=== PATIENT | male | born 1975 | race Caucasian/White ===

== ENCOUNTER 2021-07-05 15:01 | Observation (INO) ==
[2021-07-05] MEDS ORDERED: IOPAMIDOL 100 ML BOTTLE IV ONE ×2 (15:02→21:09)
[2021-07-05] MEDS ORDERED: 0.9 % SODIUM CHLORIDE 1,000 ML IV ONE (15:09)
--- NOTE | 2021-07-05 15:27 | Emergency Department Note ---
ED Note Addendum Note Addendum: I evaluated and treated this patient in conjunction with the [facility]. I agree with their documented history, examination and medical decision making as documented separately. I also evaluated the patient in person with the following additional findings: Patient is complaining of shortness of breath and a mild cough. At the time of my initial exam, he is able to speak comfortably in short sentences on room air and his slight tachypnea after prolonged periods of conversation. Given the current local prevalence we will obtain testing for possible Covid pneumonia. EKG performed at 3:15 PM: Sinus rhythm, rate 99. Normal P wave QRS and T wave morphology. No ST segment deviation. Normal CO QRS and QTc duration. No old EKG immediately available for comparison. EKG interpreted by me.
--- NOTE | 2021-07-05 15:35 | Emergency Department Note ---
SOB HPI General Chief Complaint: Shortness of Breath/Dyspnea Stated Complaint: sob Time Seen by Provider: 07/05/21 15:09 Source: patient Mode of arrival: ambulatory Limitations: no limitations History of Present Illness HPI Narrative: Narrative: Patient is a 46-year-old male that comes into the emergency department today with complaint of shortness of breath that started 2 nights ago. Patient indicates that on around 1 AM cup from his sleep with left-sided chest pain that lasted for 1 hour. He ports that he went back to sleep and then has not had any further chest pain since that time. The next day he started to have shortness of breath, and has noticed that the shortness of breath is aggravated with exertion. He has not had any fevers or chills. He denies any cough, palpitations, or edema. He has not had any weakness or headaches. He has not had any nausea, vomiting, or. Patient indicates that he has no significant past medical history and has been healthy. He is no longer having any chest pain, but was concerned with the shortness of breath that he keeps experiencing. Related Data Home Medications Medication Instructions Recorded Confirmed No Known Home Meds 07/05/21 07/05/21 Allergies Allergy/AdvReac Type Severity Reaction Status Date / Time egg Allergy Verified 07/05/21 15:06 Review of Systems ROS ROS Narrative: Narrative: All systems ED: reviewed and negative except as stated. [facility] Narrative Patient History Narrative: Narrative: Medical/Surgical/Family History All Active Problems (Updated 07/05/21 @ 20:25 by AMARILIS Iniguez) Multiple pulmonary emboli (Acute) Social History Smoking Status: Never smoker Exam Narrative Narrative: Narrative: General Limitations: no limitations General appearance: Present alert and in no apparent distress Head Head: Present normal inspection Eye Eye: Present normal appearance, PERRL and EOMI; Absent scleral icterus and conjunctival injection ENT ENT: Present normal oropharynx and mucous membranes moist Neck Neck: Present trachea midline; Absent lymphadenopathy and thyromegaly Chest Chest: Present symmetric chest wall rise; Absent tenderness Respiratory Respiratory: Present normal lung sounds bilaterally; Absent respiratory distress, rales/crackles, wheezes, stridor, accessory muscle use and prolonged expiratory phase Cardiovascular Cardiovascular: Present regular rate, normal rhythm and normal heart sounds; Absent systolic murmur and diastolic murmur Adbominal Abdominal: Present soft; Absent distention and tenderness Extremities Extremities: Present normal inspection, full ROM and normal capillary refill; Absent pedal edema, pretibial edema, calf tenderness and clubbing Back Back: Absent CVA tenderness (R), CVA tenderness (L) and spinous process tenderness Neurological Neurological: Present alert and oriented X3 Psychiatric Psychiatric: Present normal affect and normal mood Skin Skin: Present warm (WNL), dry and normal color Course Vital Signs Vital signs: Vital Signs Temperature 99.9 F H 07/05/21 15:02 Pulse Rate 115 H 07/05/21 15:02 Respiratory Rate 18 07/05/21 15:02 Blood Pressure 133/79 07/05/21 15:02 Pulse Oximetry (%) 96 07/05/21 15:02 Temperature 98.0 F 07/05/21 17:28 Pulse Rate 92 H 07/05/21 19:46 Respiratory Rate 24 H 07/05/21 19:46 Blood Pressure 103/73 07/05/21 19:46 Pulse Oximetry (%) 95 07/05/21 19:46 [facility] MDM Narrative Medical decision making narrative: Narrative: 46-year-old male with shortness of breath that started 2 days ago. Had chest pain that lasted for 1 hour 3 days ago. He has no longer had any chest pain since that time. His coronavirus test today is negative. Troponin is negative today. Patient has elevated D-dimer. Differential diagnosis could include pulmonary embolism, and proceeded with CT angio of chest. Patient CT scan shows positive pulmonary embolism in bilateral lobar, segmental, and subsegmental emboli. No evidence of significant pulmonary infarction. No evidence of significant right heart strain. Enlarged main pulmonary artery. Given that the patient has multiple pulmonary embolisms today he would likely benefit from observation in the hospital being admitted for observation. He needs to start anticoagulation. I did discuss this with the hospitalist who is on today, and Dr. Holm does agree to admit patient to [facility] for observation and anticoagulation for treatment of the pulmonary embolism. Lab Data Lab results reviewed: Yes I reviewed the patient's lab results. Result diagrams: 07/05/21 16:19 07/05/21 16:19 Labs: Lab Results 07/05/21 07/05/21 07/05/21 Range/Units 16:19 16:19 16:19 WBC 13.3 H (4.5-11.0) K/mcL RBC 5.01 (4.50-5.90) M/mcL Hgb 15.5 (13.5-16.5) g/dL Hct 45.6 (41.0-55.0) % MCV 91.0 (80.0-100.0) fL MCH 30.9 (26.0-34.0) pg MCHC 34.0 (31.0-36.0) g/dL RDW 12.9 (11.5-14.5) % Plt Count 259 (140-440) K/mcL MPV 10.4 (7.4-10.4) fL Neut % (Auto) 81.2 H (38.0-78.0) % Lymph % (Auto) 9.9 L (15.0-49.0) % [place] % (Auto) 6.8 (1.0-12.0) % Eos % (Auto) 1.6 (0.0-7.0) % Baso % (Auto) 0.5 (0.0-2.0) % Lymph # (Auto) 1.31 L (1.50-4.80) K/mcL [place] # (Auto) 0.90 (0.10-0.90) K/mcL Eos # (Auto) 0.21 (0.00-0.70) K/mcL Baso # (Auto) 0.07 (0.00-0.20) K/mcL Absolute Neutrophils 10.80 H (1.80-8.00) K/mcL D-Dimer 4.26 H (0.27-0.50) ug/mL Sodium 134 (133-145) mmol/L Potassium 4.2 (3.3-5.1) mmol/L Chloride 103 (96-108) mmol/L Carbon Dioxide 21 L (22-30) mmol/L Anion Gap 10.0 (8.0-16.0) BUN 12 (6-20) mg/dL Creatinine 1.2 (0.7-1.2) mg/dL GFR Calculation 71 Glucose 91 (70-105) mg/dL Calcium 8.5 L (8.6-10.4) mg/dL Total Bilirubin 0.3 (0.1-1.0) mg/dL AST 24 (<40) U/L ALT 20 (<40) U/L Alkaline Phosphatase 52 (39-117) U/L Troponin T (<0.03) ng/mL Total Protein 7.1 (5.9-8.4) gm/dL Albumin 3.7 (3.2-5.2) gm/dL Globulin 3.4 (2.2-3.7) gm/dL Albumin/Globulin Ratio 1.1 (1.0-2.3) 07/05/21 Range/Units 16:19 WBC (4.5-11.0) K/mcL RBC (4.50-5.90) M/mcL Hgb (13.5-16.5) g/dL Hct (41.0-55.0) % MCV (80.0-100.0) fL MCH (26.0-34.0) pg MCHC (31.0-36.0) g/dL RDW (11.5-14.5) % Plt Count (140-440) K/mcL MPV (7.4-10.4) fL Neut % (Auto) (38.0-78.0) % Lymph % (Auto) (15.0-49.0) % [place] % (Auto) (1.0-12.0) % Eos % (Auto) (0.0-7.0) % Baso % (Auto) (0.0-2.0) % Lymph # (Auto) (1.50-4.80) K/mcL [place] # (Auto) (0.10-0.90) K/mcL Eos # (Auto) (0.00-0.70) K/mcL Baso # (Auto) (0.00-0.20) K/mcL Absolute Neutrophils (1.80-8.00) K/mcL D-Dimer (0.27-0.50) ug/mL Sodium (133-145) mmol/L Potassium (3.3-5.1) mmol/L Chloride (96-108) mmol/L Carbon Dioxide (22-30) mmol/L Anion Gap (8.0-16.0) BUN (6-20) mg/dL Creatinine (0.7-1.2) mg/dL GFR Calculation Glucose (70-105) mg/dL Calcium (8.6-10.4) mg/dL Total Bilirubin (0.1-1.0) mg/dL AST (<40) U/L ALT (<40) U/L Alkaline Phosphatase (39-117) U/L Troponin T < 0.01 (<0.03) ng/mL Total Protein (5.9-8.4) gm/dL Albumin (3.2-5.2) gm/dL Globulin (2.2-3.7) gm/dL Albumin/Globulin Ratio (1.0-2.3) ED POC Tests ED POC Tests: NIKOLAS - SARS Antigen Negative Radiology Data Radiology results reviewed: Yes I reviewed the patient's radiology results. Radiology results narrative: Ordering Physician: Harry Ch Date of Service: 07/05/21 Procedure(s): XR chest 1V portable Accession Number(s): [id number] INDICATION: Chest Pain TECHNIQUE: AP portable semiupright chest x-ray COMPARISON: Previous chest x-ray dated 12/31/2015 FINDINGS: Lungs:Lungs are negative. No focal pulmonary parenchymal infiltrate or mass Heart, vascular:No significant cardiomegaly. Pulmonary vascularity is normal. No pulmonary edema or pulmonary congestion Mediastinum, radu:No mediastinal widening. No hilar mass Pleura:No pleural fluid. No pleural-based mass or calcification Skeletal:Negative. IMPRESSION: Negative AP chest x-ray Interpreted and Authenticated by: Edward Fortune 07/05/21 Ordering Physician: Harry Ch Date of Service: 07/05/21 Procedure(s): CT angio chest Accession Number(s): [id number] INDICATION: Shortness of breath, tachycardia, elevated D-dimer COMPARISON: None TECHNIQUE: Axial images obtained through the chest. 80 ml Isovue 370 injected intravenously, and scanning was performed during pulmonary arterial phase. Sagittally and coronally reformatted images were obtained. MIP reformatted images. FINDINGS: Lungs:Small focal nonspecific left upper lobe infiltrate. Mild bibasilar density consistent with dependent atelectasis. Lungs are otherwise negative. No centrilobular or paraseptal emphysema. Mediastinum, vascular: Main pulmonary artery measures 3.5 cm in cross-sectional diameter. This is enlarged. There is no thrombus within the main pulmonary artery. There is clot within the distal right pulmonary artery. This extends into the right middle lobe pulmonary arteries. There is clot within right lower lobe pulmonary artery as well as segmental and subsegmental branches. There is also embolic material within the right upper lobe pulmonary artery and segmental branches. There is clot within the left lower lobe pulmonary artery and left upper lobe pulmonary artery. There are segmental emboli. No evidence for pulmonary infarction. There is no significant reflux of contrast material into the inferior vena cava or hepatic veins. Thoracic aorta is negative. No aneurysmal dilatation No pathologic mediastinal or hilar adenopathy Heart:No cardiomegaly. No pericardial effusion. Pleura:No significant pleural effusion. No pleural mass or calcification Axilla, supraclavicular regions, chest wall:No pathologic axillary or supraclavicular adenopathy. Musculoskeletal:Negative thoracic spine. No compression fracture. No lytic lesion. No rib or sternal lesions Upper Abdomen:Previous gastric surgery. No acute abnormality IMPRESSION: 1. Positive examination for pulmonary embolism with bilateral lobar, segmental, and subsegmental emboli 2. No evidence for significant pulmonary infarction. No evidence for significant right heart strain 3. Enlarged main pulmonary artery as above The exam was performed using radiation dose optimization techniques including, but not limited to, automated exposure control, adjustment of the mA and/or kV according to patient size and use of iterative reconstruction technique. Interpreted and Authenticated by: Edward Fortune 07/05/21 EKG Data EKG #1: EKG attestation: Yes I reviewed and interpreted this EKG. and Yes There are no EKG findings of acute coronary syndrome EKG shows normal: sinus rhythm Rate: normal Discharge Plan Patient/Caregiver Discharge Instructions Pt seen by BAND SALVAGER/PA only: No Clinical Impression: Multiple pulmonary emboli Patient Disposition: Xfer As Outpt/Obs ([facility]) Condition: Good Prescriptions: No Action No Known Home Meds RF: 0
--- NOTE | 2021-07-05 15:50 | XRay Report ---
INDICATION: Chest Pain TECHNIQUE: AP portable semiupright chest x-ray COMPARISON: Previous chest x-ray dated 12/31/2015 FINDINGS: Lungs:Lungs are negative. No focal pulmonary parenchymal infiltrate or mass Heart, vascular:No significant cardiomegaly. Pulmonary vascularity is normal. No pulmonary edema or pulmonary congestion Mediastinum, radu:No mediastinal widening. No hilar mass Pleura:No pleural fluid. No pleural-based mass or calcification Skeletal:Negative. IMPRESSION: Negative AP chest x-ray Interpreted and Authenticated by: Edward Fortune 07/05/21
--- NOTE | 2021-07-05 16:09 | EKG ---
[facility] Test Date: 2021-07-05 Pat Name: Thomas Ramos Department: ED Room: Gender: Male [employer] : 1975 Requested By: Urbano Díaz Order Number: [id number] Reading MD: Ambrocio Ewing M.D. Measurements Intervals [place] Rate: 99 P: 29 MO: 135 QRS: -9 QRSD: 91 T: 31 QT: 322 QTc: 414 Interpretive Statements Sinus rhythm POOR R-WAVE PROGRESSION v3-V4; Consider anterior infarct NO PRIOR TRACING FOR COMPARISON BORDERLINE TRACING Electronically Signed On 07-05-2021 16:08:57 PDT by Ambrocio Ewing M.D. /store/[email or web address]/[id number]
[2021-07-05 17:02] LABS: Basophils # (Auto) 0.07 K/mcL (0.00-0.20); Basophils % (Auto) 0.5 % (0.0-2.0); Eosinophils # (Auto) 0.21 K/mcL (0.00-0.70); Eosinophils % (Auto) 1.6 % (0.0-7.0); Hematocrit 45.6 % (41.0-55.0); Hemoglobin 15.5 g/dL (13.5-16.5); Lymphocytes # (Auto) 1.31 K/mcL (1.50-4.80); Lymphocytes % (Auto) 9.9 % (15.0-49.0); Mean Platelet Volume 10.4 fL (7.4-10.4); Monocytes % (Auto) 6.8 % (1.0-12.0); Neutrophils % (Auto) 81.2 % (38.0-78.0); Platelet Count 259 K/mcL (140-440); RBC 5.01 M/mcL (4.50-5.90); Red Cell Distribution Width 12.9 % (11.5-14.5); WBC 13.3 K/mcL (4.5-11.0)
[2021-07-05 17:28] LABS: ALT/SGPT 20 U/L (<40); AST/SGOT 24 U/L (<40); Albumin 3.7 gm/dL (3.2-5.2); Albumin/Globulin Ratio 1.1 (1.0-2.3); Alkaline Phosphatase 52 U/L (39-117); Bilirubin,Total 0.3 mg/dL (0.1-1.0); Blood Urea Nitrogen 12 mg/dL (6-20); Calcium 8.5 mg/dL (8.6-10.4); Carbon Dioxide 21 mmol/L (22-30); Chloride 103 mmol/L (96-108); Globulin 3.4 gm/dL (2.2-3.7); Glomerular Filtration Rate 71; Glucose 91 mg/dL (70-105)
--- NOTE | 2021-07-05 18:23 | Cat Scan Report ---
INDICATION: Shortness of breath, tachycardia, elevated D-dimer COMPARISON: None TECHNIQUE: Axial images obtained through the chest. 80 ml Isovue 370 injected intravenously, and scanning was performed during pulmonary arterial phase. Sagittally and coronally reformatted images were obtained. MIP reformatted images. FINDINGS: Lungs:Small focal nonspecific left upper lobe infiltrate. Mild bibasilar density consistent with dependent atelectasis. Lungs are otherwise negative. No centrilobular or paraseptal emphysema. Mediastinum, vascular: Main pulmonary artery measures 3.5 cm in cross-sectional diameter. This is enlarged. There is no thrombus within the main pulmonary artery. There is clot within the distal right pulmonary artery. This extends into the right middle lobe pulmonary arteries. There is clot within right lower lobe pulmonary artery as well as segmental and subsegmental branches. There is also embolic material within the right upper lobe pulmonary artery and segmental branches. There is clot within the left lower lobe pulmonary artery and left upper lobe pulmonary artery. There are segmental emboli. No evidence for pulmonary infarction. There is no significant reflux of contrast material into the inferior vena cava or hepatic veins. Thoracic aorta is negative. No aneurysmal dilatation No pathologic mediastinal or hilar adenopathy Heart:No cardiomegaly. No pericardial effusion. Pleura:No significant pleural effusion. No pleural mass or calcification Axilla, supraclavicular regions, chest wall:No pathologic axillary or supraclavicular adenopathy. Musculoskeletal:Negative thoracic spine. No compression fracture. No lytic lesion. No rib or sternal lesions Upper Abdomen:Previous gastric surgery. No acute abnormality IMPRESSION: 1. Positive examination for pulmonary embolism with bilateral lobar, segmental, and subsegmental emboli 2. No evidence for significant pulmonary infarction. No evidence for significant right heart strain 3. Enlarged main pulmonary artery as above The exam was performed using radiation dose optimization techniques including, but not limited to, automated exposure control, adjustment of the mA and/or kV according to patient size and use of iterative reconstruction technique. Interpreted and Authenticated by: Edward Fortune 07/05/21
--- NOTE | 2021-07-05 19:53 | Internal Med History&Physical ---
HPI History of Present Illness Patient information: Note initiated : 07/05/21 at 7:51 pm Service Date, if different from initiated Date: [] Patient: Thomas Ramos 46 y/o M admitted on for sob. Chief Complaint: [shortness of breatg] History of present illness: Mr. Ramos is a 46 year old M negative past medical history presented with 4-day history of acute onset shortness of breath and chest tightness. There was no prior similar episode. Patient is a straight truck driver. The last morning he woke up with acute onset shortness of breath and chest tightness located in his left chest and radiated to his left arm. He is also complained of nonproductive cough since then. He is also committing of mild respiratory wheezing. Is also complaining of dyspnea on exertion with walking up to 20 feet. He denies any sick contact. He denies any subjective fever or chills. Today his symptoms got worse and his made him came to our ED for further evaluation and treatment. Vital signs significant for mild tachypnea with rate of breathing in the mid 20s. Rest of vital signs within normal limits. Oxygen saturation in the mid 90s on room air. Labs were largely unremarkable. Troponin-i nonelevated. CT angiogram of the chest showing multiple lobar, segmental, and subsegmental pulmonary emboli. Covid test negative. Constitutional Constitutional: Absent chills, excessive sweating, fatigue, fever(s) and weakness EENT Eyes: Present as per HPI; Absent blurry vision, change in vision, loss of vision and other visual disturbances Ears: Absent decreased hearing and tinnitus Nose, mouth and throat: Absent abnormal hearing, dry mouth, headache(s), nasal congestion and sore throat Cardiovascular Cardiovascular: Present chest pain; Absent chest pain at rest, edema, irregular heart rhythm and palpatations Respiratory Respiratory: Present cough, dyspnea, dyspnea on exertion and wheezing Gastrointestinal Gastrointestinal: Absent abdominal pain, constipation, diarrhea, nausea and vomiting Musculoskeletal Musculoskeletal: Absent back pain, deformity, limited range of motion, muscle cramps, muscle weakness and numbness Integumentary Integumentary: Absent lesions, rash and wounds Neurological Neurological: Absent focal weakness, headache(s) and numbness Psychiatric Psychiatric: Absent anxiety, depression and hallucinations PFSH PFSH All Active Problems (Updated 08/08/21 @ 19:51 by Luís Holm MD) Multiple pulmonary emboli (Acute) MEDS/ALLERGIES Home Medications and Allergies Home Medications Medication Instructions Recorded Confirmed Type No Known Home Meds 07/05/21 07/05/21 History Allergies Allergy/AdvReac Type Severity Reaction Status Date / Time egg Allergy Verified 07/05/21 15:06 EXAM Constitutional Vitals: Temp Pulse Resp BP Pulse Ox 36.7 C 92 H 24 H 103/73 95 07/05/21 17:28 07/05/21 19:46 07/05/21 19:46 07/05/21 19:46 07/05/21 19:46 General appearance: cooperative and no acute distress Head Head exam: Present atraumatic and normocephalic Eye Eye exam: Present EOMI and PERRL ENT ENT exam: Present mucous membranes moist, normal exam and normal external ear exam Neck Neck exam: Present normal inspection; Absent lymphadenopathy, tenderness and thyromegaly Respiratory Respiratory exam: Absent accessory muscle use, respiratory distress and wheezes Cardiovascular Cardiovascular exam: Present normal rate and rhythm; Absent JVD GI/Abdominal GI/Abdominal exam: Present normal bowel sounds and soft; Absent organomegaly and tenderness Rectal Rectal exam: Present deferred Extremities Exam Extremities exam: Present full ROM, normal capillary refill and normal inspection; Absent tenderness Neurological Exam Neurological exam: Present alert, CN II-XII intact and oriented X3; Absent motor sensory deficit Psychiatric Psychiatric exam: Present normal affect and normal mood; Absent anxious and depressed Skin Skin exam: Present dry and intact DATA Data Completed and Pending Labs: Labs from last 24 hours 07/05/21 07/05/21 07/05/21 16:19 16:19 16:19 WBC RBC Hgb Hct MCV MCH MCHC RDW Plt Count MPV Neut % (Auto) Lymph % (Auto) [place] % (Auto) Eos % (Auto) Baso % (Auto) Lymph # (Auto) [place] # (Auto) Eos # (Auto) Baso # (Auto) Absolute Neutrophils D-Dimer 4.26 H Sodium 134 Potassium 4.2 Chloride 103 Carbon Dioxide 21 L Anion Gap 10.0 BUN 12 Creatinine 1.2 GFR Calculation 71 Glucose 91 Calcium 8.5 L Total Bilirubin 0.3 AST 24 ALT 20 Alkaline Phosphatase 52 Troponin T < 0.01 Total Protein 7.1 Albumin 3.7 Globulin 3.4 Albumin/Globulin Ratio 1.1 07/05/21 16:19 WBC 13.3 H RBC 5.01 Hgb 15.5 Hct 45.6 MCV 91.0 MCH 30.9 MCHC 34.0 RDW 12.9 Plt Count 259 MPV 10.4 Neut % (Auto) 81.2 H Lymph % (Auto) 9.9 L [place] % (Auto) 6.8 Eos % (Auto) 1.6 Baso % (Auto) 0.5 Lymph # (Auto) 1.31 L [place] # (Auto) 0.90 Eos # (Auto) 0.21 Baso # (Auto) 0.07 Absolute Neutrophils 10.80 H D-Dimer Sodium Potassium Chloride Carbon Dioxide Anion Gap BUN Creatinine GFR Calculation Glucose Calcium Total Bilirubin AST ALT Alkaline Phosphatase Troponin T Total Protein Albumin Globulin Albumin/Globulin Ratio A/P Assessment and plan (1) Multiple pulmonary emboli: Status: Acute Narrative A/P Narrative: Assessment and Plans: 1. Acute respiratory distress secondary to multiple lobar, segmental, and subse gmental pulmonary emboli: Admit to observation med surg with telemetry Oxygen therapy via nasal cannula titrate to achieve spo2 >=92% Xarelto 15mg PO BID for 21 days, then 20mg PO daily for 3-6mo first episode of unprovoked pulmonary emboli Factor V laden Echocardiogram GI ppx: not currently indicated DVT ppx: Xarelto Code status: Full Prognosis: stable Disposition: observation med surg telemetry Time Spent With Patient Time: Total time spent is greater than 50% in coordination of care (as documented) at patient's floor/unit and/or counseling patient: Total time spent with greater than 50% in coordination of care (as documented) at patient's floor/unit and/or counseling patient:: 25 - 35 minutes
[2021-07-05] MEDS ORDERED: ACETAMINOPHEN 325 MG TABLET PO PRN (21:09)
[2021-07-05] MEDS ORDERED: ZOLPIDEM 5 MG TABLET PO PRN (21:09)
[2021-07-05] MEDS ORDERED: ONDANSETRON 4 MG/2 ML VIAL IV PRN (21:09)
[2021-07-05] MEDS ORDERED: SENNOSIDES 1 TABLET PO SCH (21:09)
[2021-07-05] MEDS: DOCUSATE SODIUM 100 MG CAPSULE PO SCH (21:37)
[2021-07-05] MEDS ORDERED: RIVAROXABAN 15 MG TABLET PO ONE ×2 (22:42→22:50)
[2021-07-06 06:57] LABS: Basophils # (Auto) 0.04 K/mcL (0.00-0.20); Basophils % (Auto) 0.5 % (0.0-2.0); Eosinophils # (Auto) 0.27 K/mcL (0.00-0.70); Eosinophils % (Auto) 3.3 % (0.0-7.0); Hematocrit 42.1 % (41.0-55.0); Hemoglobin 14.5 g/dL (13.5-16.5); Lymphocytes % (Auto) 17.3 % (15.0-49.0); Mean Cell Volume 89.2 fL (80.0-100.0); Mean Corpuscular HGB Conc 34.4 g/dL (31.0-36.0); Mean Platelet Volume 10.3 fL (7.4-10.4); Monocytes # (Auto) 0.73 K/mcL (0.10-0.90); Neutrophils % (Auto) 69.9 % (38.0-78.0); Platelet Count 235 K/mcL (140-440); RBC 4.72 M/mcL (4.50-5.90); Red Cell Distribution Width 12.8 % (11.5-14.5); WBC 8.1 K/mcL (4.5-11.0)
[2021-07-06 07:21] LABS: ALT/SGPT 16 U/L (<40); AST/SGOT 21 U/L (<40); Albumin 3.5 gm/dL (3.2-5.2); Albumin/Globulin Ratio 1.2 (1.0-2.3); Alkaline Phosphatase 46 U/L (39-117); Bilirubin,Total 0.6 mg/dL (0.1-1.0); Blood Urea Nitrogen 11 mg/dL (6-20); Calcium 8.6 mg/dL (8.6-10.4); Carbon Dioxide 23 mmol/L (22-30); Chloride 105 mmol/L (96-108); Glomerular Filtration Rate 88; Glucose 105 mg/dL (70-105)
[2021-07-06] MEDS ORDERED: RIVAROXABAN 15 MG TABLET PO SCH (08:00)
[2021-07-06] MEDS: DOCUSATE SODIUM 100 MG CAPSULE PO SCH (08:47)
[2021-07-06] MEDS ORDERED: guaiFENesin/DEXTROMETHORPHAN ORAL SOL PO PRN (10:20)
--- NOTE | 2021-07-06 12:49 | Discharge Summary ---
Discharge Provider Provider Patient information: Note initiated : 07/06/21 at 12:47 pm Service Date, if different from initiated Date: [] Patient: Thomas Ramos 46 y/o M admitted on 07/05/21 for sob. Chief Complaint: [multiple pulmonary emboli] Date of admission: 07/05/21 20:58 Discharge date: 07/06/21 Consults: 07/05/21 Consult to Physician [CONS] Stat Comment: Consulting Provider: Luís Holm Reason For Exam: Physician to Consult Discharge Meds Discharge Medications Home Medications dextromethorphan-guaifenesin [Robafen DM Cough] 5 ml PO Q4-6HP PRN #500 ml 07/06/21 [Rx Last Taken Unknown] rivaroxaban [Xarelto] 15 mg PO BIDCC 20 Days #40 tab 07/06/21 [Rx Last Taken Unknown] COURSE Hospital Course Hospital course: Patient was admitted on July 06, 2021 for observations for bilateral lobar, segmental, and subsegmental pulmonary emboli. He was tolerating room air. Patient was started on Xarelto. Patient symptoms slightly improved overnight and remained to be clinically stable on the next day. Echocardiogram did not show any cardiac thrombus. Decision was made to discharge patient home with prescriptions of Xarelto sent. Instruction to follow with PCP 1 to 2 weeks given. All questions were answered prior to patient being physically discharged. Discharge diagnosis: Pulmonary emboli Time Spent with Patient Time attestation: Total time spent providing and/or coordinating discharge services: Patient was admitted on July 06, 2021 for observations for bilateral lobar, segmental, and subsegmental pulmonary emboli. He was tolerating room air. Patient was started on Xarelto. Patient symptoms slightly improved overnight and remained to be clinically stable on the next day. Echocardiogram did not show any cardiac thrombus. Decision was made to discharge patient home with prescriptions of Xarelto sent. Instruction to follow with PCP 1 to 2 weeks given. All questions were answered prior to patient being physically discharged. EXAM Constitutional Vitals: Temp Pulse Resp BP Pulse Ox 36.6 C 96 H 20 114/67 97 07/06/21 12:00 07/06/21 12:00 07/06/21 12:00 07/06/21 12:00 07/06/21 12:00 General appearance: cooperative and no acute distress Head Head exam: Present atraumatic and normocephalic Eye Eye exam: Present EOMI and PERRL ENT ENT exam: Present mucous membranes moist, normal exam and normal external ear exam Neck Neck exam: Present normal inspection; Absent lymphadenopathy, tenderness and thyromegaly Respiratory Respiratory exam: Absent accessory muscle use, respiratory distress and wheezes Cardiovascular Cardiovascular exam: Present normal rate and rhythm; Absent JVD GI/Abdominal GI/Abdominal exam: Present normal bowel sounds and soft; Absent organomegaly and tenderness Rectal Rectal exam: Present deferred Extremities Exam Extremities exam: Present full ROM, normal capillary refill and normal inspection; Absent tenderness Neurological Exam Neurological exam: Present alert, CN II-XII intact and oriented X3; Absent motor sensory deficit Psychiatric Psychiatric exam: Present normal affect and normal mood; Absent anxious and depressed Skin Skin exam: Present dry and intact Discharge Data Data Completed and Pending Labs on day of discharge: Labs from last 24 hours 07/06/21 07/06/21 07/05/21 05:59 05:59 22:11 WBC 8.1 RBC 4.72 Hgb 14.5 Hct 42.1 MCV 89.2 MCH 30.7 MCHC 34.4 RDW 12.8 Plt Count 235 MPV 10.3 Neut % (Auto) 69.9 Lymph % (Auto) 17.3 Jefferson % (Auto) 9.0 Eos % (Auto) 3.3 Baso % (Auto) 0.5 Lymph # (Auto) 1.40 L Jefferson # (Auto) 0.73 Eos # (Auto) 0.27 Baso # (Auto) 0.04 Absolute Neutrophils 5.64 D-Dimer Factor V Mutation Pending Sodium 137 Potassium 4.3 Chloride 105 Carbon Dioxide 23 Anion Gap 9.0 BUN 11 Creatinine 1.0 GFR Calculation 88 Glucose 105 Calcium 8.6 Total Bilirubin 0.6 AST 21 ALT 16 Alkaline Phosphatase 46 Troponin T Total Protein 6.5 Albumin 3.5 Globulin 3.0 Albumin/Globulin Ratio 1.2 07/05/21 07/05/21 07/05/21 16:19 16:19 16:19 WBC RBC Hgb Hct MCV MCH MCHC RDW Plt Count MPV Neut % (Auto) Lymph % (Auto) Jefferson % (Auto) Eos % (Auto) Baso % (Auto) Lymph # (Auto) Jefferson # (Auto) Eos # (Auto) Baso # (Auto) Absolute Neutrophils D-Dimer 4.26 H Factor V Mutation Sodium 134 Potassium 4.2 Chloride 103 Carbon Dioxide 21 L Anion Gap 10.0 BUN 12 Creatinine 1.2 GFR Calculation 71 Glucose 91 Calcium 8.5 L Total Bilirubin 0.3 AST 24 ALT 20 Alkaline Phosphatase 52 Troponin T < 0.01 Total Protein 7.1 Albumin 3.7 Globulin 3.4 Albumin/Globulin Ratio 1.1 07/05/21 16:19 WBC 13.3 H RBC 5.01 Hgb 15.5 Hct 45.6 MCV 91.0 MCH 30.9 MCHC 34.0 RDW 12.9 Plt Count 259 MPV 10.4 Neut % (Auto) 81.2 H Lymph % (Auto) 9.9 L Jefferson % (Auto) 6.8 Eos % (Auto) 1.6 Baso % (Auto) 0.5 Lymph # (Auto) 1.31 L Jefferson # (Auto) 0.90 Eos # (Auto) 0.21 Baso # (Auto) 0.07 Absolute Neutrophils 10.80 H D-Dimer Factor V Mutation Sodium Potassium Chloride Carbon Dioxide Anion Gap BUN Creatinine GFR Calculation Glucose Calcium Total Bilirubin AST ALT Alkaline Phosphatase Troponin T Total Protein Albumin Globulin Albumin/Globulin Ratio Discharge Plan Patient/Caregiver Discharge Instructions Activity: increase activity as tolerated Diet: Regular Diet Stand Alone Forms: Work/Release Restrictions Prescriptions: New dextromethorphan-guaifenesin [Robafen DM Cough] 10-100 mg/5 mL Liquid 5 ml PO Q4-6HP PRN (Reason: Cough) Qty: 500 RF: 0 Xarelto 15 mg Tablet 15 mg PO BIDCC 20 Days Qty: 40 RF: 0 Follow Up Plan Patient Disposition: Home, Self-Care Prognosis: Good Rehab Potential: Good I certify that the patient requires SNF services: No Overall status at discharge: patient is progressing back to baseline Discharge Orders: Discharge Order (Routine); Ordered 07/06/21 Ordered By: Luís TSAI VTE Deep Vein Thrombosis/Pulmonary Embolism Present on Admission: Yes
== END 2021-07-06 14:25 | disposition home or self-care (01) ==
LOC: ED 15:01 → MEDSUR 15:01
PROVIDERS: ADMIT Internal Medicine; ATTEND Internal Medicine